=== PATIENT | female | born 1970 | race Caucasian/White ===

== ENCOUNTER 2016-10-09 13:06 | Emergency (ER) | payer MEDICAID, OTHER ==
[~2016-10-09] VITALS: Ht 152.4 cm; Wt 131.0 kg
[~2016-10-09 13:06] MED LIST: ASPI1POW35
[2016-10-09 13:29] VITALS: BP 146/94
[2016-10-09] MEDS ORDERED: KETOROLAC 60MG/2ML VIAL IM ONE (15:00)
== END 2016-10-09 16:40 | disposition home or self-care (01) ==
LOC: ER 16:00
DX: M25.561 Pain in right knee (principal); M17.11 Unilateral primary osteoarthritis, right knee; I10 Essential (primary) hypertension; R06.02 Shortness of breath; Z79.82 Long term (current) use of aspirin
CPT/HCPCS: 73562; 81025; 96372; 99284; J1885

== ENCOUNTER 2016-12-07 13:09 | Emergency (ER) | payer MEDICAID ==
[~2016-12-07] VITALS: Ht 152.4 cm; Wt 127.0 kg
[2016-12-07] MEDS ORDERED: TRAM50TA3 PO (13:28)
[2016-12-07] MEDS ORDERED: OYSCO PO (13:28)
[2016-12-07] MEDS ORDERED: NAPR-681 PO (13:28)
[2016-12-07] MEDS ORDERED: PRAV20TA57 PO (13:28)
[2016-12-07] MEDS ORDERED: METF500T4 PO (13:28)
[2016-12-07 13:54] VITALS: BP 130/76
[2016-12-07] MEDS ORDERED: PREDNISONE 20MG TABLET PO ONE (14:00)
[2016-12-07] MEDS ORDERED: DIPHENHYDRAMINE 25MG CAPSULE PO ONE (14:00)
[2016-12-07] MEDS ORDERED: ACETAMINOPHEN 325MG TABLET PO ONE (14:15)
== END 2016-12-07 14:46 | disposition home or self-care (01) ==
LOC: ER 14:25
DX: L23.9 Allergic contact dermatitis, unspecified cause (principal); E11.9 Type 2 diabetes mellitus without complications; E78.00 Pure hypercholesterolemia, unspecified; M19.90 Unspecified osteoarthritis, unspecified site; F17.210 Nicotine dependence, cigarettes, uncomplicated; Z79.82 Long term (current) use of aspirin
CPT/HCPCS: 99284; J7512; Q0163

== ENCOUNTER 2019-03-20 16:15 | Emergency (ER) | payer MEDICAID ==
[~2019-03-20] VITALS: Ht 152.4 cm; Wt 118.0 kg
[~2019-03-20 16:15] MED LIST changes: +METF-414 PO; +NAPR-681 PO; +OYSCO PO; +PRAV20TA57 PO; +TRAM50TA3 PO
[2019-03-20] MEDS ORDERED: ACETAMINOPHEN 325MG TABLET PO ONE (17:00)
[2019-03-20] MEDS ORDERED: INSULIN REGULAR (HUMULIN R) UD 100 UNITS/ML SYR SUBCUT ONE ×2 (17:15→18:45)
[2019-03-20 17:40] LABS: CLARITY URINE CLEAR (CLEAR); COLOR URINE YELLOW (YELLOW); KETONES URINE TRACE (NEGATIVE); LEUKOCYTE ESTERASE URINE 1+ (NEGATIVE); NITRITE URINE NEGATIVE (NEGATIVE); OCCULT BLOOD URINE TRACE (NEGATIVE); PH URINE 5.5 (4.5-8.0); PROTEIN URINE NEGATIVE (NEGATIVE); SPECIFIC GRAVITY URINE 1.044 (1.005-1.030); UROBILINOGEN URINE 0.2 E.U./dL (0.2-1.0)
[2019-03-20] MEDS ORDERED: INSULIN REGULAR (HUMULIN R) 300UNITS/3ML SUBCUT ONE (17:45)
[2019-03-20 19:16] VITALS: BP 122/72
== END 2019-03-20 19:18 | disposition home or self-care (01) ==
LOC: ER 16:15
DX: N39.0 Urinary tract infection, site not specified (principal); B37.9 Candidiasis, unspecified; E11.65 Type 2 diabetes mellitus with hyperglycemia; E78.00 Pure hypercholesterolemia, unspecified; Z98.890 Other specified postprocedural states; Z79.899 Other long term (current) drug therapy
CPT/HCPCS: 81003; 81025; 82962; 96372; 99283; J1815